=== PATIENT | female | born 1980 | race Caucasian/White ===

== ENCOUNTER → 2016-04-20 | Outpatient (CLI) | payer BC ==
[~2016-04-20] MED LIST: CLARITIN,ALAVAR10 MG PO; ENDOCET 5-3251 EACH PO; IBUPROFEN800 MG PO; PERCOCET 5/31 TABLET PO; PRENATAL VITAM1 EAC3 PO; PROZAC40 MG PO; ZOFRAN4 MG PO
== END | disposition home or self-care (01) ==
LOC: NUC 07:17
DX: R94.8 Abnormal results of function studies of other organs and systems (principal); R11.10 Vomiting, unspecified; K59.00 Constipation, unspecified
CPT/HCPCS: 78264; A9541